=== PATIENT | female | born 1955 | race Two or more races ===

== ENCOUNTER 2018-01-22 05:44 | Day surgery (SDC) | payer BC ==
[2018-01-22] MEDS ORDERED: FENTAnyl 50 MCG/ML VIAL (07:46)
[2018-01-22] MEDS ORDERED: MIDAZOLAM 1 MG/ML 2 ML INJ (07:46)
== END 2018-01-22 09:59 | disposition home or self-care (01) ==
LOC: GIL 05:44
DX: K29.70 Gastritis, unspecified, without bleeding (principal); K44.9 Diaphragmatic hernia without obstruction or gangrene; K25.9 Gastric ulcer, unspecified as acute or chronic, without hemorrhage or perforation; K21.9 Gastro-esophageal reflux disease without esophagitis; Z90.49 Acquired absence of other specified parts of digestive tract; Z88.0 Allergy status to penicillin
CPT/HCPCS: 43239; 88305; 88312